=== PATIENT | female | born 1945 | race Caucasian/White ===

== ENCOUNTER 2018-04-02 12:45 | Outpatient (CLI) | payer MEDICARE, OTHER | END 2018-04-02 12:46 | disposition home or self-care (01) | LOC: BICULT 12:45 | PROVIDERS: ATTEND Urology | DX: R31.9 Hematuria, unspecified (principal); N28.1 Cyst of kidney, acquired | CPT/HCPCS: 76770 ==

== ENCOUNTER 2018-04-28 09:18 | Outpatient (CLI) | payer MEDICARE, OTHER ==
--- NOTE | 2018-04-28 11:00 | CT ---
CT OF THE CHEST WITHOUT CONTRAST: Comparison: 04-30-17 History: Pulmonary nodules seen on chest x-ray at outside facility. Technique: Multiple contiguous axial images were obtained in a CT of the chest without contrast. Phyllis nal reformats were performed. FINDINGS: Emphysematous changes are seen in the lung apices. No pneumothorax or pleural effusion are seen. Ther e is a tiny nodular opacity in the right lower lobe on image 30 of 70 which may be a small calcified granuloma. This is 3-4 mm in size. No other pulmonary nodules are identified. No focal infiltrates ar e seen in the lungs. There are calcified right hilar and mediastinal lymph nodes. The heart is normal in size. There is a stable opacity in the right lung base which likely represents scarring. Small hiatal hernia is presen t. No hilar or mediastinal lymphadenopathy are seen. There is a large cyst in the right kidney measuring 7.7 cm in greatest dimension. There is a subcenti meter hypodensity in the liver which cannot be definitely characterized. The other visualized subdiap hragmatic structures are unremarkable. Degenerative changes are seen in the spine. The chest wall sof t tissues are unremarkable. IMPRESSION: 1. No suspicious pulmonary nodule identified. 2. Right basilar scarring. 3. Emphysema. 4. Right renal cyst. POS: [facility]
--- NOTE | 2018-04-28 11:14 | CT ---
CT ABDOMEN AND PELVIS WITH AND WITHOUT CONTRAST: HISTORY: Hematuria with back pain and right-sided abdominal pain. COMPARISON: 03/22/2013 TECHNIQUE: Multiple contiguous axial images were obtained in a CT of the abdomen and pelvis with and without IV contrast. Post contrast images were obtained in nephrographic and excretory phases. Coronal reforma ts were performed. FINDINGS: There are multiple hypodensities in the bilateral kidneys, measuring up to 8.7 cm in size, which repr esent cysts. A subcentimeter hypodensity in the liver cannot be definitely characterized but is stab le compared to the prior examination. The gallbladder, adrenal glands, spleen, and pancreas are unremarkable. No free air, free fluid, or stranding changes are seen in the abdomen or pelvis. The patient is status post hysterectomy. The large and small bowel are unremarkable. The urinary bl adder has a diffusely thickened wall without a focal mass. No hydronephrosis is seen. No abnormalit y is seen in either ureter. The large and small bowel are unremarkable. The appendix is normal. No abdominal or pelvic lymphade nopathy is seen. Atherosclerotic calcifications are seen in the aorta. Degenerative changes are seen in the spine. The visualized inferior thorax and abdominal wall soft t issues are unremarkable. IMPRESSION: 1. Bilateral renal cysts. 2. Diffuse thickening of the urinary bladder wall may be secondary to cystitis. 3. Stable nonspecific hepatic hypodensity. POS: [facility]
== END 2018-04-28 09:19 | disposition home or self-care (01) ==
LOC: CT 09:18
PROVIDERS: ATTEND Internal Medicine Critical Care Medicine
DX: N28.1 Cyst of kidney, acquired (principal); R31.29 Other microscopic hematuria; R91.8 Other nonspecific abnormal finding of lung field; J43.9 Emphysema, unspecified; J98.4 Other disorders of lung; R93.2 Abnormal findings on diagnostic imaging of liver and biliary tract
CPT/HCPCS: 71250; 74178; 82565

== ENCOUNTER 2018-06-02 12:10 | Outpatient (CLI) | payer MEDICARE, OTHER ==
[2018-06-02 13:52] LABS: Hemoglobin 14.7 g/dL (12.0-16.0); Mean Corpuscular HGB CONC 34.9 g/dL (32.0-36.0); Mean Corpuscular Hemoglobin 31.6 pg (27.0-31.0); Mean Corpuscular Volume 90.7 fL (78.0-98.0); Mean Platelet Volume 6.8 fL (7.4-10.4); Platelet Count 209 thou/uL (130-400); RBC Distribution Width 12.5 % (11.5-14.5); Red Blood Cell (RBC) Count 4.64 mill/uL (4.20-5.40); White Blood Cell (WBC) Count 7.1 thou/uL (4.8-10.8)
[2018-06-02 13:58] LABS: INR-International Normal Ratio 0.9; PTT 25.2 SEC (22.9-36.1); Prothrombin Time 12.6 SEC (12.0-14.7)
[2018-06-02 14:08] LABS: Bilirubin Negative (Negative); Blood, Urine Large (Negative); Clarity CLOUDY (Clear); Glucose, Urine (Dipstick) Negative (Negative); Leukocyte Negative (Negative); Nitrite Negative (Negative); Protein, Urine (Dipstick) Negative (Neg-Trace); Specific Gravity, Urine 1.018 (1.002-1.036); Urobilinogen 0.2 mg/dL (0.2-1.0)
[2018-06-02 14:12] LABS: Bacteria/HPF None Seen HPF (None Seen); Hyaline Casts/LPF 0-3 HYALINE CAST LPF (0-3 Hyaline); Pathc Cast-AUWi Flag 0.43 (0-2.49); RBC/HPF GREATER THAN 50-TNTC HPF (0-3); Squamous Epithelial 0-3 HPF (0-3); WBC/HPF 0-3 HPF (0-3)
[2018-06-02 14:18] LABS: Anion Gap 11 mmol/L (10-20); BUN (Urea Nitrogen) 17 mg/dL (9.8-20.1); Calc. Creatinine Clearance 0 mL/min (70-130); Calcium 10.3 mg/dL (7.8-10.44); Carbon Dioxide 29 mmol/L (23-31); Chloride 104 mmol/L (98-107); Estimated GFR-MDRD 70; Glucose 117 mg/dL (83-110); Potassium 4.1 mmol/L (3.5-5.1); Sodium 140 mmol/L (136-145)
--- NOTE | 2018-06-04 15:08 | EKG ---
Test Reason : Blood Pressure : / mmHG Vent. Rate : 072 BPM Atrial Rate : 072 BPM P-R Int : 176 ms QRS Dur : 092 ms QT Int : 414 ms P-R-T Axes : 069 029 066 degrees QTc Int : 453 ms Normal sinus rhythm Cannot rule out Anterior infarct , age undetermined Abnormal ECG No previous ECGs available Confirmed by MONIKA FLORES MD ([id number]) on 06/04/2018 3:07:59 PM Referred By: ELEAZAR Confirmed By:MONIKA FLORES MD
== END 2018-06-02 12:11 | disposition home or self-care (01) ==
LOC: LABBT 12:10
PROVIDERS: ATTEND Urology
DX: Z01.818 Encounter for other preprocedural examination (principal); N32.9 Bladder disorder, unspecified
CPT/HCPCS: 80048; 81001; 85027; 85610; 85730; 87086; 93005; 93010

== ENCOUNTER 2018-06-10 12:09 | Day surgery (SDC) | payer MEDICARE, OTHER ==
[2018-06-02 12:46] VITALS: BMI 31.6
[2018-06-10] MEDS ORDERED: Albuterol Sulfate 2.5 mg/3 ml Neb ONE (14:10)
[2018-06-10] MEDS ORDERED: Albuterol Sulfate 2.5 mg/3 ml Neb NEB SCH (14:30)
[2018-06-10] MEDS ORDERED: Levofloxacin 500 mg/D5W 100 ml Premix Bag ONE (15:27)
[2018-06-10] MEDS ORDERED: B & O 30 MG SUPP ONE (16:50)
--- NOTE | 2018-06-10 23:31 | OP ---
DATE OF PROCEDURE: 06/10/2018 SURGEON: Lencho Ríos M.D. SERVICE: Urology. PREOPERATIVE DIAGNOSIS: Bladder lesion. POSTOPERATIVE DIAGNOSIS: Bladder lesion. PROCEDURE PERFORMED: Bladder biopsies x2. INDICATIONS FOR PROCEDURE: Mrs. Blanco is a 73-year-old white female who came to see me for enrique turia. On cystoscopy, she had two lesions within the bladder. A nodular-like lesion on the trigone and a small red lesion on the dome of the bladder. Neither appeared overly concerning, but we electe d to go forward with biopsies to ensure that they were not of any concern. Risks and benefits of clary dder biopsy were discussed and she has agreed to proceed forward. DESCRIPTION OF PROCEDURE: After identification of armband and verification of consent, the patient w as brought to the operating room, where she underwent total intravenous anesthesia with an LMA. She was then placed in dorsal lithotomy position and prepped and draped in usual sterile fashion. After appropriate timeout, a lubricated 22-Ethiopian rigid cystoscope was introduced per urethra into the blad prince. A full cystoscopy was performed which demonstrated normal urethra. The trigone, which had the right nodular lesion and the small red area on the dome of the bladder. No other tumors or lesions w ere noted. No other stones. Both ureters in orthotopic location. Cold cup biopsy forceps were brou ght in and biopsies were first taken at the trigonal nodule which was removed in its entirety. Atten tion was then turned to the dome of the bladder where the red area was then biopsied and removed. Mitch th of these were sent off for routine pathologic evaluation. The Bugbee electrode was then brought i n and both areas were fulgurated, taking care not to injure the ureter on the trigone. Upon completi on, there was excellent hemostasis. The amount of area biopsy was relatively small. The bladder was then emptied, the cystoscope removed. The patient was then awakened and taken to PACU for recovery in stable condition. COMPLICATIONS: None. ESTIMATED BLOOD LOSS: Minimal. RETAINED TUBES AND DRAINS: None. SPECIMENS: Bladder biopsies x2. DISPOSITION: The patient will be discharged home and follow up with me in approximately 2 weeks for a postop check and we discussed biopsy results.
== END 2018-06-10 19:08 | disposition home or self-care (01) ==
LOC: SDC 12:09
PROVIDERS: ATTEND Urology
PROC: 0TBB8ZX Excision of Bladder, Via Natural or Artificial Opening Endoscopic, Diagnostic (ICD-10-PCS; principal; 2018-06-10)
DX: N30.80 Other cystitis without hematuria (principal); N30.30 Trigonitis without hematuria; I10 Essential (primary) hypertension; I25.10 Atherosclerotic heart disease of native coronary artery without angina pectoris; F17.210 Nicotine dependence, cigarettes, uncomplicated; E11.9 Type 2 diabetes mellitus without complications; Z79.82 Long term (current) use of aspirin; Z79.84 Long term (current) use of oral hypoglycemic drugs; Z79.899 Other long term (current) drug therapy; Z95.5 Presence of coronary angioplasty implant and graft
CPT/HCPCS: 52204; 94640; C1758; 88305; 89060; J1956; J7611

== ENCOUNTER 2019-10-05 03:23 | Emergency (ER) | payer MEDICARE, OTHER ==
[2019-10-05] MEDS ORDERED: Meclizine HCl 25 MG TAB ONE (03:43)
--- NOTE | 2019-10-05 09:26 | CT ---
PRELIMINARY REPORT/[facility]/EMERGENCY AFTER HOURS PROCEDURE: EXAM: CT Head Without Intravenous Contrast. CLINICAL HISTORY: F74 presents to ED for dizziness after taking medications. EMS reports pt has high blood pressure and diabetes. EMS reports pt's initial pressure was 216/110 and it stayed about that. EMS reports pt den ies headache, nausea, blurred vision, chest pain. Pt reports he was in bed when he first felt dizzy a nd it felt as though his bed was rocking. Pt reports he had to hold onto the dresser to get up. Pt re ports he felt like this once before this summer when he had just changed his medicine. Pt denies N/V/ D. Pt reports he had his lisinopril dosage bumped up recently. Pt denies any weakness or numbness chasity t's new. pt reports he smokes. Pt reports he recently had a stuffy nose. Pt reports when he sits up i t feels like the room is spinning. COMPARISON: None provided. FINDINGS: BRAIN: No acute intraparenchymal hemorrhage. No mass lesion. No CT evidence for acute territorial inf arct. No midline shift or extra-axial collection. VENTRICLES: No hydrocephalus. ORBITS: The orbits are unremarkable. SINUSES AND MASTOIDS: The paranasal sinuses and mastoid air cells are clear. SOFT TISSUES: No significant facial or scalp soft tissue swelling evident. No radiopaque foreign body is seen. BONES: No acute skull fracture. IMPRESSION: No acute intracranial abnormality. ELECTRONICALLY SIGNED BY: Nic Beck MD Oct 05, 2019 4:29:15 AM CORPORATE COMPLIANCE OFFICER This report is intended for review by the ordering physician only, in accordance of law. If you recei ve this report in error, please call [facility] at [phone]. FINAL REPORT CT OF BRAIN PERFORMED WITHOUT CONTRAST ENHANCEMENT: HISTORY: Headache. Dizziness. Hypertension. COMPARISON: None. FINDINGS: The ventricular and cisternal system shows fairly age-appropriate change. There are no signs of intra cerebral hemorrhage or extra-axial fluid collections. The mastoid air cells and visualized sinuses ar e clear. IMPRESSION: No acute intracranial abnormalities. POS: [facility]
== END 2019-10-05 06:39 | disposition home or self-care (01) ==
LOC: ERS 03:23
DX: R42 Dizziness and giddiness (principal); F17.210 Nicotine dependence, cigarettes, uncomplicated; Z79.84 Long term (current) use of oral hypoglycemic drugs; Z79.82 Long term (current) use of aspirin; Z79.899 Other long term (current) drug therapy
CPT/HCPCS: 70450; J8597

== ENCOUNTER 2019-10-25 09:29 | Outpatient (CLI) | payer MEDICARE, OTHER ==
--- NOTE | 2019-10-25 11:14 | CT ---
CHEST CT WITHOUT CONTRAST: COMPARISON: Follow-up lung nodule. COMPARISON: 04/28/2018,, 04/30/2017, 12/29/2016, 09/01/2016. FINDINGS: Mediastinum: Limited evaluation by the absence of IV contrast. No mass, lymphadenopathy or hematoma. Heart: Normal size. No significant pericardial fluid. Aorta: Atherosclerosis of a nonaneurysmal aorta. Upper abdomen: Grossly no abnormality. Alimentary canal: Small hiatal hernia is noted. Osseous structures: No lytic or blastic lesions. Trachea and central bronchi: Patent. Pleural spaces: No pleural effusion. Pneumothorax: None. Lungs: Stable emphysematous changes and areas of scarring. Right lun.5 x 0.4 x 0.7 cm solid nodule in the superior segment of the right lower lobe. In April of 2018, this nodule measured 0.4 x 0.4 x 0.5 cm. In March 2017, this nodule measured 0.7 x 0.7 cm in the axial plane. In December 2016, this nodule measured 1.1 cm in maximum dimension. In August, this nodule measured 1 cm in maximum dimension. Left lung: No suspicious masses, nodules or consolidation. IMPRESSION: Redemonstration of a solid nodule in the superior segment of the right lower lobe. Nodule has slightl y increased in size since the examination from April 2018 but has decreased since examinations from 2016 and 2015. Given the slight waxing and waning nature of this lesion nodule, followup CT in one ye ar is recommended. Transcribed Date/Time: 10/25/2019 11:36 AM
== END 2019-10-25 09:30 | disposition home or self-care (01) ==
LOC: CT 09:29
PROVIDERS: ATTEND Internal Medicine Critical Care Medicine
DX: R91.1 Solitary pulmonary nodule (principal)
CPT/HCPCS: 71250

== ENCOUNTER 2020-10-30 09:14 | Outpatient (CLI) | payer MEDICARE, OTHER ==
--- NOTE | 2020-10-30 09:54 | CT ---
CT Chest WO Con History: Lung nodule follow-up Comparison: Chest CT October 2019 Findings: CT chest performed without intravenous contrast. Slight interval size decrease with developing scar along the superior segment right lower lobe pulmon [place] nodules. No growth. High-grade centrilobular emphysema. Subtle 4 mm nodule anterior segment right upper lobe axial image 32. No pneumothorax. No effusion. No suspicious pulmonary nodule. Scattered micronodules measuring less t peralta 4 mm in the periphery of the lungs, most numerous within the lingula and left upper lobe. Similar appearance given the motion artifact in the posterior segment right lower lobe nodule. No mediastinal adenopathy. Are ectasia the thoracic aorta measuring up to 3.3 cm. Large cyst right ki dney and peripheral parenchymal calcifications. Hepatic cyst is present. Thoracic spine is intact. No acute fracture. Sternum and manubrium are both intact. No acute displaced rib fracture. Impression: 1. No interval growth with developing scar formation within the right lower lobe pulmonary nodules. 2. Scattered pulmonary micronodules without suspicious features. A follow-up required given the small size. Flexor criteria. 3. No acute inflammatory process within the chest. No evidence for pneumonia.
== END 2020-10-30 09:15 | disposition home or self-care (01) ==
LOC: BICCT 09:14
PROVIDERS: ATTEND Internal Medicine Critical Care Medicine
DX: R91.8 Other nonspecific abnormal finding of lung field (principal); J98.4 Other disorders of lung
CPT/HCPCS: 71250

== ENCOUNTER 2021-03-12 13:07 | Outpatient (CLI) | payer MEDICARE, OTHER | END 2021-03-12 13:08 | disposition home or self-care (01) | LOC: BICMAMMO 13:07 | PROVIDERS: ATTEND Family Medicine | DX: Z12.31 Encounter for screening mammogram for malignant neoplasm of breast (principal); N64.89 Other specified disorders of breast | CPT/HCPCS: 77063; 77067 ==

== ENCOUNTER 2021-03-18 14:13 | Outpatient (CLI) | payer MEDICARE, OTHER | END 2021-03-18 14:14 | disposition home or self-care (01) | LOC: BICMAMMO 14:13 | PROVIDERS: ATTEND Family Medicine | DX: R92.2 Inconclusive mammogram (principal) | CPT/HCPCS: 76642; 77065; G0279 ==

== ENCOUNTER 2021-11-19 08:39 | Outpatient (CLI) | payer MEDICARE, OTHER | END 2021-11-19 08:40 | disposition home or self-care (01) | LOC: CT 08:39 | PROVIDERS: ATTEND Internal Medicine Critical Care Medicine | DX: R91.1 Solitary pulmonary nodule (principal); R91.8 Other nonspecific abnormal finding of lung field; K80.20 Calculus of gallbladder without cholecystitis without obstruction | CPT/HCPCS: 71250 ==

== ENCOUNTER 2022-01-17 13:37 | Observation (INO) | payer MEDICARE, OTHER ==
[2022-01-17] MEDS ORDERED: Bacitracin 1 PK ONE (15:18)
[2022-01-17] MEDS ORDERED: Ketorolac Tromethamine 30 MG/ML VIAL ONE (16:20)
[2022-01-17] MEDS ORDERED: Morphine 4 MG/ML VIAL ONE (16:20)
[2022-01-17 16:44] LABS: #Basophils 0.1 thou/uL (0.0-0.2); #Eosinphils 0.1 thou/uL (0.0-0.7); #Lymphocytes 2.1 thou/uL (1.20-3.40); #Monocytes 0.5 thou/uL (0.11-0.59); #Neutrophils 6.5 thou/uL (1.40-6.50); %Basophils 0.5 % (0.0-1.0); %Lymphocytes 22.9 % (21.0-51.0); %Monocytes 5.1 % (0.0-10.0); %Neutrophils 70.5 % (42.0-75.0); Hemoglobin 16.1 g/dL (12.0-16.0); Mean Corpuscular HGB CONC 33.3 g/dL (32.0-36.0); Mean Corpuscular Hemoglobin 31.4 pg (27.0-31.0); Mean Corpuscular Volume 94.3 fL (78.0-98.0); Mean Platelet Volume 6.6 fL (7.4-10.4); Platelet Count 239 thou/uL (130-400); RBC Distribution Width 12.6 % (11.5-14.5); Red Blood Cell (RBC) Count 5.13 mill/uL (4.20-5.40); White Blood Cell (WBC) Count 9.2 thou/uL (4.8-10.8)
[2022-01-17 16:59] LABS: INR-International Normal Ratio 0.9; PTT 23.9 sec (22.9-36.1); Prothrombin Time 12.3 sec (12.0-14.7)
[2022-01-17] MEDS ORDERED: Dextrose 50% Abboject 50 ML SYRINGE SLOW IVP PRN (17:10)
[2022-01-17] MEDS ORDERED: Ondansetron PF 4 MG/2 ML Vial IVP PRN (17:10)
[2022-01-17] MEDS ORDERED: Dextrose 5% in Water 1,000 ML IV PRN (17:10)
[2022-01-17] MEDS ORDERED: Insulin Regular 300 UNITS/3 ML VIAL SC PRN (17:10)
[2022-01-17] MEDS ORDERED: hydrALAZINE 20 MG/ML VIAL SLOW IVP PRN (17:10)
[2022-01-17 17:11] LABS: Phosphorus 3.1 mg/dL (2.3-4.7)
[2022-01-17 17:13] LABS: ALT (SGPT) 20 U/L (8-55); AST (SGOT) 16 U/L (5-34); Albumin 4.3 g/dL (3.4-4.8); Alkaline Phosphatase 67 U/L (40-110); Anion Gap 14 mmol/L (10-20); BUN (Urea Nitrogen) 17 mg/dL (9.8-20.1); Bilirubin, Total 0.5 mg/dL (0.2-1.2); Calc. Creatinine Clearance 0 mL/min (70-130); Calcium 10.1 mg/dL (7.8-10.44); Carbon Dioxide 27 mmol/L (23-31); Chloride 101 mmol/L (98-107); Glucose 158 mg/dL (83-110); Potassium 4.2 mmol/L (3.5-5.1); Protein, Total 7.3 g/dL (5.8-8.1); Sodium 138 mmol/L (136-145)
[2022-01-17] MEDS ORDERED: Cyclobenzaprine 10 MG TAB PO PRN (17:18)
[2022-01-17] MEDS ORDERED: traMADol HCl 50 MG TAB PO PRN ×2 (17:18)
[2022-01-17 17:26] LABS: SARS-CoV-2 NAA Rapid Test Not Detected (NotDetected)
[2022-01-17] MEDS ORDERED: Morphine 4 MG/ML VIAL SLOW IVP PRN (17:30)
[2022-01-17] MEDS ORDERED: PHOS-NAK 1 PKT PACK PO SCH (17:30)
[2022-01-17] MEDS ORDERED: CEFAZOLIN 2 GM, Admixture Fee 1 EACH in Sodium Chloride 0.9% 100 ML IVPB SCH (18:00)
[2022-01-17 19:20] VITALS: BMI 27.4
[2022-01-17] MEDS: Sodium Chloride 0.9% 1,000 ML IV SCH (20:15)
[2022-01-17] MEDS: Senokot S 8.6-50 MG TAB PO SCH (20:17)
[2022-01-17] MEDS: Gabapentin 100 MG CAP PO SCH (20:17)
[2022-01-17] MEDS: Acetaminophen 500 MG TAB PO SCH (20:18)
[2022-01-17] MEDS: Famotidine 20 MG TAB PO SCH (20:19)
[2022-01-17] MEDS: Insulin Regular 300 UNITS/3 ML VIAL SC PRN (20:21)
[2022-01-18] MEDS: Acetaminophen 500 MG TAB PO SCH ×3 (05:43→12:50)
[2022-01-18] MEDS: Sodium Chloride 0.9% 1,000 ML IV SCH (05:44)
[2022-01-18 05:52] LABS: #Eosinphils 0.1 thou/uL (0.0-0.7); #Lymphocytes 2.6 thou/uL (1.20-3.40); #Monocytes 0.7 thou/uL (0.11-0.59); #Neutrophils 6.2 thou/uL (1.40-6.50); %Basophils 0.2 % (0.0-1.0); %Eosinophils 1.3 % (0.0-10.0); %Lymphocytes 27.4 % (21.0-51.0); %Monocytes 6.8 % (0.0-10.0); %Neutrophils 64.2 % (42.0-75.0); Hemoglobin 13.9 g/dL (12.0-16.0); Mean Corpuscular HGB CONC 32.9 g/dL (32.0-36.0); Mean Corpuscular Hemoglobin 31.4 pg (27.0-31.0); Mean Corpuscular Volume 95.5 fL (78.0-98.0); Mean Platelet Volume 6.5 fL (7.4-10.4); Platelet Count 212 thou/uL (130-400); RBC Distribution Width 12.6 % (11.5-14.5); Red Blood Cell (RBC) Count 4.41 mill/uL (4.20-5.40); White Blood Cell (WBC) Count 9.6 thou/uL (4.8-10.8)
[2022-01-18 06:13] LABS: Anion Gap 14 mmol/L (10-20); BUN (Urea Nitrogen) 20 mg/dL (9.8-20.1); Calc. Creatinine Clearance 79 mL/min (70-130); Carbon Dioxide 25 mmol/L (23-31); Chloride 105 mmol/L (98-107); Glucose 123 mg/dL (83-110); Magnesium 1.8 mg/dL (1.6-2.6); Phosphorus 4.2 mg/dL (2.3-4.7); Sodium 140 mmol/L (136-145)
[2022-01-18 06:17] LABS: Bilirubin Negative (Negative); Blood, Urine 2+ (Negative); Clarity Clear (Clear); Glucose, Urine (Dipstick) 70 mg/dL (Negative); Ketone, Urine Negative (Negative); Leukocyte 75 Leu/uL (Negative); Nitrite Negative (Negative); Protein, Urine (Dipstick) Negative (Neg-Trace); Specific Gravity, Urine 1.026 (1.002-1.036); Squamous Epithelial 0-3 HPF (0-3); Urobilinogen Normal mg/dL (Less than 2); pH, Urine 5.5 (5.0-9.0)
[2022-01-18 06:21] LABS: Bacteria/HPF 1+ HPF (None Seen); Urine Culture Reflex Yes Yes
[2022-01-18] MEDS ORDERED: Magnesium 2 GM/50 ML(in water) 2 GM in Premix Bag 1 BAG IVPB SCH (08:30)
[2022-01-18] MEDS: Gabapentin 100 MG CAP PO SCH ×2 (08:40→16:18)
[2022-01-18] MEDS: Senokot S 8.6-50 MG TAB PO SCH (08:41)
[2022-01-18] MEDS ORDERED: Polyethylene Glycol 3350 17 GM Packet PO SCH (09:00)
[2022-01-18] MEDS ORDERED: Lisinopril 10 MG TAB PO SCH (09:00)
[2022-01-18] MEDS ORDERED: hydrALAZINE 20 MG/ML VIAL ONE (09:21)
[2022-01-18] MEDS ORDERED: Bupivacaine 0.25% HCL 30 ML VIAL ONE (09:25)
[2022-01-18] MEDS ORDERED: Lidocaine 1% w/Epinephrine 1:100K 20 ML VIAL ONE (09:26)
[2022-01-18] MEDS ORDERED: Fentanyl 100 MCG/2 ML VIAL ONE (09:32)
[2022-01-18] MEDS ORDERED: Dexmedetomidine 200 MCG/2 ML VIAL ONE (09:33)
[2022-01-18] MEDS ORDERED: ceFAZolin (BATCH) 2 GM/100 ML BAG ONE (09:36)
[2022-01-18] MEDS: Famotidine 20 MG TAB PO SCH (09:43)
[2022-01-18] MEDS ORDERED: Succinylcholine 200 MG/10 ml SYRINGE FS ONE (09:55)
[2022-01-18] MEDS ORDERED: Lidocaine 1% PF 5 ML VIAL ONE (09:55)
[2022-01-18] MEDS ORDERED: ePHEDrine 50 MG/ML VIAL ONE (09:55)
[2022-01-18] MEDS ORDERED: PROPOFOL 200 MG/20 ML VIAL ONE (09:55)
[2022-01-18] MEDS ORDERED: Dexamethasone 20 MG/5 ML VIAL ONE (09:55)
[2022-01-18] MEDS ORDERED: Ondansetron PF 4 MG/2 ML Vial ONE (09:55)
[2022-01-18] MEDS ORDERED: Ondansetron HCl/PF 4 MG/2 ML Vial IVP PRN (11:07)
[2022-01-18] MEDS ORDERED: Promethazine HCl 25 MG/ML VIAL IM PRN (11:07)
[2022-01-18] MEDS ORDERED: Promethazine HCl 25 MG/ML VIAL IVPB PRN (11:07)
[2022-01-18] MEDS ORDERED: HYDROcodone/Acetaminophen 10/325 mg Tablet PO PRN ×4 (11:24→11:59)
[2022-01-18] MEDS ORDERED: TETANUS AND DIPHTHERIA TOX/PF 0.5 ML DISP.SYRIN IM SCH (11:30)
[2022-01-18] MEDS ORDERED: Communication Order-Pharmacy FS SCH (11:30)
[2022-01-18] MEDS ORDERED: traMADol HCl 50 MG TAB PO PRN ×2 (14:14)
[2022-01-18] MEDS ORDERED: Acetaminophen 500 MG TAB PO SCH (15:00)
[2022-01-18] MEDS ORDERED: CEFAZOLIN 2 GM, Admixture Fee 1 EACH in Sodium Chloride 0.9% 100 ML IVPB SCH (18:00)
[2022-01-18] MEDS ORDERED: Aspirin 81 mg Enteric Coated Tablet PO SCH (21:00)
[2022-01-18] MEDS: Insulin Regular 300 UNITS/3 ML VIAL SC PRN (21:00)
[2022-01-18 22:15] VITALS: BP 100/78; TEMP 97.4
== END 2022-01-18 21:00 | disposition home or self-care (01) ==
LOC: ERS 13:37 → SURG A 17:10
PROVIDERS: ADMIT Surgery; ATTEND Surgery
PROC: 0PSK04Z Reposition Right Ulna with Internal Fixation Device, Open Approach (ICD-10-PCS; principal; 2022-01-18)
DX: S52.031A Displaced fracture of olecranon process with intraarticular extension of right ulna, initial encounter for closed fracture (principal); I25.10 Atherosclerotic heart disease of native coronary artery without angina pectoris; E78.5 Hyperlipidemia, unspecified; I10 Essential (primary) hypertension; N02.8 Recurrent and persistent hematuria with other morphologic changes; E11.9 Type 2 diabetes mellitus without complications; F17.210 Nicotine dependence, cigarettes, uncomplicated; M85.841 Other specified disorders of bone density and structure, right hand; M19.011 Primary osteoarthritis, right shoulder; Z79.82 Long term (current) use of aspirin; Z79.84 Long term (current) use of oral hypoglycemic drugs; Z79.899 Other long term (current) drug therapy; Z95.5 Presence of coronary angioplasty implant and graft; Z20.822 Contact with and (suspected) exposure to COVID-19; W01.0XXA Fall on same level from slipping, tripping and stumbling without subsequent striking against object, initial encounter; Y93.K1 Activity, walking an animal
CPT/HCPCS: 24685; 29105; 71045; 72170; 73030; 73070 ×2; 73130; 76000; 80048; 80053; 81001; 82962 ×2; 83735 ×2; 84100 ×2; 85025 ×2; 85610; 85730; 87086; 93005; 94640 ×2; 96374; 96375; 97139 ×2; 99284; C1713; U0002; 36415; 36416; 96365; 96376; G0378; J0360; J0690; J1100; J1815; J1885; J2270; J2405; J2704; J3010; J3475; J3490; J7050; J7620; S0020

== ENCOUNTER 2022-04-17 13:07 | Outpatient (CLI) | payer MEDICARE, OTHER | END 2022-04-17 13:08 | disposition home or self-care (01) | LOC: BICCT 13:07 | PROVIDERS: ATTEND Family Medicine | DX: R10.13 Epigastric pain (principal); K80.20 Calculus of gallbladder without cholecystitis without obstruction; K76.89 Other specified diseases of liver; I71.4 Abdominal aortic aneurysm, without rupture; I72.8 Aneurysm of other specified arteries; R91.1 Solitary pulmonary nodule; K44.9 Diaphragmatic hernia without obstruction or gangrene; N28.89 Other specified disorders of kidney and ureter | CPT/HCPCS: 74150 ==

== ENCOUNTER 2022-08-07 09:57 | Outpatient (CLI) | payer MEDICARE, OTHER ==
[2022-08-07] MEDS ORDERED: Iopamidol-370 76% 500 ML 1 ML ONE (14:02)
== END 2022-08-07 09:58 | disposition home or self-care (01) ==
LOC: BICCT 09:57
PROVIDERS: ATTEND Internal Medicine
DX: K86.1 Other chronic pancreatitis (principal); R10.13 Epigastric pain; R91.1 Solitary pulmonary nodule; K80.20 Calculus of gallbladder without cholecystitis without obstruction; N28.1 Cyst of kidney, acquired; Z90.710 Acquired absence of both cervix and uterus
CPT/HCPCS: 74178; Q9967

== ENCOUNTER 2022-11-18 12:37 | Outpatient (CLI) | payer MEDICARE, OTHER | END 2022-11-18 12:38 | disposition home or self-care (01) | LOC: BICCT 12:37 | PROVIDERS: ATTEND Internal Medicine Critical Care Medicine | DX: Z12.2 Encounter for screening for malignant neoplasm of respiratory organs (principal); F17.210 Nicotine dependence, cigarettes, uncomplicated | CPT/HCPCS: 71271 ==

== ENCOUNTER 2023-08-18 09:08 | Outpatient (CLI) | payer MEDICARE, OTHER | END 2023-08-18 09:09 | disposition home or self-care (01) | LOC: BICMAMMO 09:08 | PROVIDERS: ATTEND Family Medicine | DX: N63.14 Unspecified lump in the right breast, lower inner quadrant (principal) | CPT/HCPCS: 76642; 77066; G0279 ==

== ENCOUNTER 2023-08-28 12:34 | Inpatient (IN) | payer MEDICARE, OTHER ==
[2023-08-28 13:32] LABS: #Eosinphils 0.1 thou/uL (0.0-0.7); #Monocytes 0.6 thou/uL (0.11-0.59); #Neutrophils 7.2 thou/uL (1.40-6.50); %Basophils 0.3 % (0.0-1.0); %Monocytes 5.5 % (0.0-10.0); %Neutrophils 68.8 % (42.0-75.0); Hematocrit 49.1 % (36.0-47.0); Hemoglobin 16.4 g/dL (12.0-16.0); Mean Corpuscular HGB CONC 33.4 g/dL (32.0-36.0); Mean Corpuscular Hemoglobin 30.4 pg (27.0-31.0); Mean Corpuscular Volume 90.9 fl (78.0-98.0); Mean Platelet Volume 8.7 fL (7.4-10.4); Platelet Count 314 10x3/uL (130-400); RBC Distribution Width 13.2 % (11.5-14.5); White Blood Cell (WBC) Count 10.5 10x3/uL (4.8-10.8)
[2023-08-28 13:49] LABS: Troponin I Less than 0.010 ng/mL (< 0.028)
[2023-08-28 13:51] LABS: ALT (SGPT) 13 U/L (8-55); AST (SGOT) 11 U/L (5-34); Albumin 4.3 g/dL (3.4-4.8); Alkaline Phosphatase 72 U/L (40-110); Anion Gap 13 mmol/L (10-20); BUN (Urea Nitrogen) 14 mg/dL (9.8-20.1); Bilirubin, Total 0.8 mg/dL (0.2-1.2); Calc. Creatinine Clearance 0 mL/min (70-130); Calcium 10.1 mg/dL (7.8-10.44); Carbon Dioxide 32 mmol/L (23-31); Chloride 98 mmol/L (98-107); Estimated GFR 72; Glucose 168 mg/dL (83-110); Lipase 14 U/L (8-78); Potassium 4.2 mmol/L (3.5-5.1); Protein, Total 7.3 g/dL (5.8-8.1); Sodium 139 mmol/L (136-145)
[2023-08-28] MEDS ORDERED: predniSONE 20 MG TAB ONE (14:33)
[2023-08-28] MEDS ORDERED: Sodium Chloride 0.9% 100 ML ONE (14:34)
[2023-08-28] MEDS ORDERED: Cefepime 1 GM VIAL ONE (14:34)
[2023-08-28] MEDS ORDERED: Ipratropium/Albuterol 3 ML NEB ONE (14:45)
[2023-08-28] MEDS ORDERED: Magnesium 2 GM/50 ML BAG (IN WATER) ONE (15:40)
[2023-08-28] MEDS ORDERED: Acetaminophen 325 MG TAB PO PRN (15:49)
[2023-08-28] MEDS ORDERED: Glucagon 1 MG/ML KIT IM PRN (15:49)
[2023-08-28] MEDS ORDERED: Dextrose 5% in Water 1,000 ML IV PRN (15:49)
[2023-08-28] MEDS ORDERED: Dextrose 50% Abboject 50 ML SYRINGE SLOW IVP PRN (15:49)
[2023-08-28] MEDS ORDERED: Ondansetron PF 4 MG/2 ML Vial IVP PRN (15:49)
[2023-08-28] MEDS ORDERED: Nitroglycerin 0.4 MG TAB (25 Tab Bottle) SL PRN (15:49)
[2023-08-28 16:21] LABS: SARS-CoV-2 NAA Rapid Test Not Detected (NotDetected)
[2023-08-28] MEDS ORDERED: LevoFLOXacin 500 mg/D5W 500 MG in Premix 1 BAG IVPB SCH (17:00)
[2023-08-28] MEDS ORDERED: Azithromycin 500 MG VIAL ONE (17:04)
[2023-08-28] MEDS: Ipratropium/Albuterol 3 ML NEB NEB SCH ×2 (18:30→22:10)
[2023-08-28] MEDS: Nicotine 21 MG PATCH TD SCH (21:30)
[2023-08-28] MEDS: Atorvastatin Calcium 10 MG TAB PO SCH (22:16)
[2023-08-28] MEDS: Heparin 5,000 UNITS/ML VIAL SC SCH (22:25)
[2023-08-28] MEDS: HumaLOG 300 UNITS/3 ML VIAL SC PRN (22:38)
[2023-08-29] MEDS: Ipratropium/Albuterol 3 ML NEB NEB SCH ×6 (01:59→22:17)
[2023-08-29] MEDS: methylPREDNISolone Sod Succ 40 MG VIAL IVP SCH ×6 (02:12→22:02)
[2023-08-29 05:08] LABS: #Monocytes 0.3 thou/uL (0.11-0.59); #Neutrophils 7.6 thou/uL (1.40-6.50); %Basophils 0.2 % (0.0-1.0); %Eosinophils 0.1 % (0.0-10.0); %Lymphocytes 14.1 % (21.0-51.0); %Monocytes 3.6 % (0.0-10.0); %Neutrophils 81.4 % (42.0-75.0); Hematocrit 41.5 % (36.0-47.0); Hemoglobin 13.8 g/dL (12.0-16.0); Mean Corpuscular HGB CONC 33.3 g/dL (32.0-36.0); Mean Corpuscular Hemoglobin 30.5 pg (27.0-31.0); Mean Corpuscular Volume 91.8 fl (78.0-98.0); Mean Platelet Volume 8.9 fL (7.4-10.4); Platelet Count 238 10x3/uL (130-400); RBC Distribution Width 13.2 % (11.5-14.5); Red Blood Cell (RBC) Count 4.52 mill/uL (4.20-5.40); White Blood Cell (WBC) Count 9.4 10x3/uL (4.8-10.8)
[2023-08-29 05:37] LABS: Anion Gap 10 mmol/L (10-20); BUN (Urea Nitrogen) 19 mg/dL (9.8-20.1); Calc. Creatinine Clearance 0 mL/min (70-130); Calcium 9.4 mg/dL (7.8-10.44); Carbon Dioxide 33 mmol/L (23-31); Chloride 101 mmol/L (98-107); Estimated GFR 80; Glucose 209 mg/dL (83-110); Magnesium 2.2 mg/dL (1.6-2.6); Potassium 4.7 mmol/L (3.5-5.1); Sodium 139 mmol/L (136-145)
[2023-08-29 06:25] VITALS: BMI 27.7
[2023-08-29] MEDS ORDERED: FLU VACC QS2023(65UP)/MF59C/PF 60 MCG/0.5 ML SYRINGE IM ONE (09:00)
[2023-08-29] MEDS ORDERED: Aspirin 81 mg Enteric Coated Tablet ONE (09:29)
[2023-08-29] MEDS: metFORMIN 500 MG TAB PO SCH (09:40)
[2023-08-29] MEDS: Amlodipine 5 MG TAB PO SCH (09:40)
[2023-08-29] MEDS: Lisinopril 20 MG TAB PO SCH (09:40)
[2023-08-29] MEDS: Carvedilol 6.25 MG TAB PO SCH (09:41)
[2023-08-29] MEDS: Heparin 5,000 UNITS/ML VIAL SC SCH ×3 (09:43→22:00)
[2023-08-29] MEDS: Aspirin 81 mg Enteric Coated Tablet PO SCH (09:43)
[2023-08-29] MEDS: HumaLOG 300 UNITS/3 ML VIAL SC PRN ×2 (12:25→17:41)
[2023-08-29] MEDS: Nicotine 21 MG PATCH TD SCH (16:08)
[2023-08-29] MEDS: Atorvastatin Calcium 10 MG TAB PO SCH (22:03)
[2023-08-30] MEDS: Ipratropium/Albuterol 3 ML NEB NEB SCH ×4 (02:10→19:25)
[2023-08-30] MEDS: LevoFLOXacin 500 mg/D5W 500 MG in Premix 1 BAG IVPB SCH (02:50)
[2023-08-30] MEDS: methylPREDNISolone Sod Succ 40 MG VIAL IVP SCH ×3 (03:57→21:50)
[2023-08-30] MEDS ORDERED: Ipratropium/Albuterol 3 ML NEB EZPAP PRN (09:29)
[2023-08-30] MEDS: metFORMIN 500 MG TAB PO SCH (10:00)
[2023-08-30] MEDS: Amlodipine 5 MG TAB PO SCH (10:01)
[2023-08-30] MEDS: Aspirin 81 mg Enteric Coated Tablet PO SCH (10:03)
[2023-08-30] MEDS: Carvedilol 6.25 MG TAB PO SCH (10:03)
[2023-08-30] MEDS: Lisinopril 20 MG TAB PO SCH (10:03)
[2023-08-30] MEDS: Heparin 5,000 UNITS/ML VIAL SC SCH ×3 (10:04→21:50)
[2023-08-30] MEDS: HumaLOG 300 UNITS/3 ML VIAL SC PRN ×2 (12:23→17:56)
[2023-08-30] MEDS: Nicotine 21 MG PATCH TD SCH (15:02)
[2023-08-30] MEDS ORDERED: HumaLOG 300 UNITS/3 ML VIAL SC PRN (21:30)
[2023-08-30] MEDS: Atorvastatin Calcium 10 MG TAB PO SCH (21:49)
[2023-08-31] MEDS: Ipratropium/Albuterol 3 ML NEB NEB SCH ×3 (00:48→15:19)
[2023-08-31] MEDS: LevoFLOXacin 500 mg/D5W 500 MG in Premix 1 BAG IVPB SCH (03:35)
[2023-08-31] MEDS: HumaLOG 300 UNITS/3 ML VIAL SC PRN ×2 (06:05→13:09)
[2023-08-31 08:15] VITALS: TEMP 97.9
[2023-08-31] MEDS: methylPREDNISolone Sod Succ 40 MG VIAL IVP SCH (09:33)
[2023-08-31] MEDS: Amlodipine 5 MG TAB PO SCH (09:33)
[2023-08-31] MEDS: Lisinopril 20 MG TAB PO SCH (09:33)
[2023-08-31] MEDS: Aspirin 81 mg Enteric Coated Tablet PO SCH (09:34)
[2023-08-31] MEDS: metFORMIN 500 MG TAB PO SCH (09:34)
[2023-08-31] MEDS: Carvedilol 6.25 MG TAB PO SCH (09:34)
[2023-08-31] MEDS: Heparin 5,000 UNITS/ML VIAL SC SCH ×2 (09:39→15:20)
[2023-08-31 11:55] VITALS: BP 155/82
[2023-08-31] MEDS: Nicotine 21 MG PATCH TD SCH (15:20)
== END 2023-08-31 16:55 | disposition home or self-care (01) | DRG 189 ==
LOC: ERS 12:34 → ERHOLD 15:16 → MSONC 19:18
PROVIDERS: ADMIT Internal Medicine; ATTEND Family Medicine
DX: J96.01 Acute respiratory failure with hypoxia (principal); J44.1 Chronic obstructive pulmonary disease with (acute) exacerbation; J20.9 Acute bronchitis, unspecified; F17.210 Nicotine dependence, cigarettes, uncomplicated; E11.9 Type 2 diabetes mellitus without complications; I10 Essential (primary) hypertension; E78.5 Hyperlipidemia, unspecified; I25.10 Atherosclerotic heart disease of native coronary artery without angina pectoris; Z71.6 Tobacco abuse counseling; Z79.899 Other long term (current) drug therapy; Z79.82 Long term (current) use of aspirin; Z90.710 Acquired absence of both cervix and uterus; Z11.52 Encounter for screening for COVID-19
CPT/HCPCS: 36415; 36416; 71045; 80048; 80053; 83690; 83735; 83880; 84484; 85025; 93005; 94640; 96365; 96367; J0456; J0692; J1644; J1815; J1956; J2920; J3475; J3490; J7512; J7620

== ENCOUNTER 2023-11-19 08:22 | Outpatient (CLI) | payer MEDICARE, OTHER | END 2023-11-19 08:23 | disposition home or self-care (01) | LOC: BICCT 08:22 | PROVIDERS: ATTEND Internal Medicine Critical Care Medicine | DX: Z12.2 Encounter for screening for malignant neoplasm of respiratory organs (principal); F17.210 Nicotine dependence, cigarettes, uncomplicated | CPT/HCPCS: 71271 ==

== ENCOUNTER 2024-09-14 12:00 | Outpatient (CLI) | payer MEDICARE, OTHER | END 2024-09-14 12:01 | disposition home or self-care (01) | LOC: BICMAMMO 12:00 | PROVIDERS: ATTEND Family Medicine | DX: Z12.31 Encounter for screening mammogram for malignant neoplasm of breast (principal) | CPT/HCPCS: 77063; 77067 ==

== ENCOUNTER 2024-11-22 08:47 | Outpatient (CLI) | payer MEDICARE, OTHER | END 2024-11-22 08:48 | disposition home or self-care (01) | LOC: CT 08:47 | PROVIDERS: ATTEND Internal Medicine Critical Care Medicine | DX: Z12.2 Encounter for screening for malignant neoplasm of respiratory organs (principal); Z87.891 Personal history of nicotine dependence | CPT/HCPCS: 71271 ==